=== PATIENT | female | born 1980 | race Caucasian/White ===

== ENCOUNTER 2017-12-06 21:01 | Emergency (ER) | payer OTHER ==
[2017-12-06] MEDS ORDERED: NS 1,000 ML IV ONE (21:32)
[2017-12-06] MEDS ORDERED: DIAZEPAM 10 MG/2 ML SYR IVP ONE (21:32)
[2017-12-06] MEDS ORDERED: ONDANSETRON 4 MG/2 ML VIAL IVP ONE (21:32)
--- NOTE | 2017-12-06 21:34 | EDPHY ---
H & P Stated Complaint: dizziness while standing at a concert. Vomited x 4 Time Seen by Provider: 12/06/17 21:20 HPI/ROS: CHIEF COMPLAINT: Vertigo HISTORY OF PRESENT ILLNESS: The patient is a 36-year-old healthy female who had sudden onset intense vertigo this evening while standing and a concert. She vomited several times. Her vertigo is paroxysmal. She states that she feels the room is spinning. No abdominal pain. No fever. No trauma. She was not drinking. No tinnitus REVIEW OF SYSTEMS: Constitutional: denies: chills, fever, recent illness, recent injury EENTM: denies: blurred vision, double vision, nose congestion Respiratory: denies: cough, shortness of breath Cardiac: denies: chest pain, irregular heart rate, lightheadedness, palpitations Gastrointestinal/Abdominal: denies: abdominal pain, diarrhea, nausea, vomiting, blood streaked stools Genitourinary: denies: dysuria, frequency, hematuria, pain Musculoskeletal: denies: joint pain, muscle pain Skin: denies: lesions, rash, jaundice, bruising Neurological: See HPI denies: headache, numbness, paresthesia, tingling, dizziness, weakness Hematologic/Lymphatic: denies: blood clots, easy bleeding, easy bruising Immunologic/allergic: denies: HIV/AIDS, transplant EXAM: GENERAL: Well-appearing, well-nourished and in no acute distress. HEAD: Atraumatic, normocephalic. EYES: Nystagmus with fast component to the right, Pupils equal round and reactive to light, extraocular movements intact, sclera anicteric, conjunctiva are normal. ENT: TMs normal, nares patent, oropharynx clear without exudates. Moist mucous membranes. NECK: Normal range of motion, supple without lymphadenopathy or JVD. LUNGS: Breath sounds clear to auscultation bilaterally and equal. No wheezes rales or rhonchi. HEART: Regular rate and rhythm without murmurs, rubs or gallops. ABDOMEN: Soft, nontender, normoactive bowel sounds. No guarding, no rebound. No masses appreciated. BACK: No CVA tenderness, no spinal tenderness, step-offs or deformities EXTREMITIES: Normal range of motion, no pitting or edema. No clubbing or cyanosis. NEUROLOGICAL: Cranial nerves II through XII grossly intact. Normal speech, normal gait. 5/5 strength, normal movement in all extremities, normal sensation PSYCH: Normal mood, normal affect. SKIN: Warm, dry, normal turgor, no visible rashes or lesions. Source: Patient Exam Limitations: No limitations - Personal History LMP (Females 10-55): 15-21 Days Ago Current Tetanus Diphtheria and Acellular Pertussis (TDAP): Yes - Medical/Surgical History Hx Asthma: No Hx Chronic Respiratory Disease: No Hx Diabetes: No Hx Cardiac Disease: No Hx Renal Disease: No Hx Cirrhosis: No Hx Alcoholism: No Hx HIV/AIDS: No Hx Splenectomy or Spleen Trauma: No Other PMH: denies - Family History Significant Family History: No pertinent family hx - Social History Smoking Status: Never smoked Alcohol Use: Sober Drug Use: None Constitutional: Initial Vital Signs Temperature (C) 36.6 C 12/06/17 21:14 Heart Rate 65 12/06/17 21:14 Respiratory Rate 16 12/06/17 21:14 Blood Pressure 123/79 H 12/06/17 21:14 O2 Sat (%) 98 12/06/17 21:14 O2 Delivery Mode Room Air Allergies/Adverse Reactions: No Known Allergies Allergy (Unverified 12/06/17 21:17) Home Medications: Medication Instructions Recorded Diazepam [Valium 5 MG (*)] 5 mg PO TID PRN #10 tab 12/06/17 Ondansetron Odt [Zofran Odt 4 mg 4 mg PO Q4 PRN #20 tab 12/06/17 (RX)] Medical Decision Making ED Course/Re-evaluation: Patient clinically has benign positional paroxysmal vertigo. I began to treat her with the Porfirio maneuver but she did not tolerate it. I then gave her Valium and Zofran. She now feels almost completely better and is eager to go home. I offered to perform the Porfirio maneuver again and showed her video but she declined. She states she my tried at home. I will give her a take-home packs as well as prescriptions. She has a [place] home [place] tomorrow afternoon which we discussed might be miserable of her symptoms have not resolved by then. Differential Diagnosis: Partial list of the Differential diagnosis considered include but were not limited to; benign paroxysmal positional vertigo, labyrinthitis, and although unlikely based on the history and physical exam, I also considered neuroma, tumor, concussion, infection. I discussed these differential diagnoses and the plan with the patient as well as the usual and expected course. The patient understands that the diagnosis is provisional and that in medicine we are not always correct and that further workup is often warranted. Usual and customary warnings were given. All of the patient's questions were answered. The patient was instructed to return to the emergency department should the symptoms at all worsen or return, otherwise to followup with the physician as we discussed. - Data Points Medications Given: Discontinued Medications Diazepam (Valium) 5 mg IVP EDNOW ONE Stop: 12/06/17 21:33 Last Admin: 12/06/17 21:42 Dose: 5 mg Diazepam (Valium 5 Mg Prepack#4) 1 btl TAKEHOME EDNOW ONE Stop: 12/06/17 22:16 Last Admin: 12/06/17 22:23 Dose: 1 btl Sodium Chloride (Ns) 1,000 mls @ 0 mls/hr IV EDNOW ONE; Wide Open PRN Reason: Protocol Stop: 12/06/17 21:33 Last Admin: 12/06/17 21:42 Dose: 1,000 mls Ondansetron HCl (Zofran) 4 mg IVP EDNOW ONE Stop: 12/06/17 21:33 Last Admin: 12/06/17 21:42 Dose: 4 mg Ondansetron HCl (Zofran Odt 4 Mg Prepack#2) 1 btl TAKEHOME EDNOW ONE Stop: 12/06/17 22:16 Last Admin: 12/06/17 22:22 Dose: 1 btl Departure - Departure Disposition: Home, Routine, Self-Care Clinical Impression: Benign paroxysmal vertigo of right ear Condition: Fair Instructions: Diazepam (By mouth), Ondansetron (By mouth), Benign Paroxysmal Positional Vertigo (ED) Referrals: NONE *PRIMARY CARE P,. [Primary Care Provider] - As per Instructions Mars Doe MD [Medical Doctor] - As per Instructions Felix Lund MD [Medical Doctor] - As per Instructions Prescriptions: Diazepam [Valium 5 MG (*)] 5 mg PO TID PRN #10 tab PRN Reason: Vertigo Ondansetron Odt [Zofran Odt 4 mg (RX)] 4 mg PO Q4 PRN #20 tab PRN Reason: Nausea & Vomiting
[2017-12-06] MEDS ORDERED: ONDANSETRON 4MG PREPACK#2 BTL TAKEHOME ONE (22:15)
[2017-12-06] MEDS ORDERED: DIAZEPAM 5 MG PREPACK#4 BTL TAKEHOME ONE (22:15)
[2017-12-06 22:40] VITALS: BP 123/71
== END 2017-12-06 22:25 | disposition home or self-care (01) ==
LOC: CED 21:01
DX: H81.11 Benign paroxysmal vertigo, right ear (principal); E86.9 Volume depletion, unspecified
CPT/HCPCS: 96374; J2405; J3360